=== PATIENT | female | born 1975 | race Caucasian/White ===

== ENCOUNTER 2016-09-21 08:17 | Emergency (ER) | payer SELFPAY ==
[~2016-09-21] VITALS: Ht 160 cm; Wt 68.0 kg
[2016-09-21 08:20] VITALS: Ht 160 cm; Wt 68.0 kg
[2016-09-21] MEDS ORDERED: IPRATROPIUM (NEB) 0.5 MG/2.5 ML AMP NEB STA (08:55)
[2016-09-21] MEDS ORDERED: ALBUTEROL 0.5% (NEB) 2.5 MG/0.5 ML AMP NEB STA (08:55)
[2016-09-21] MEDS ORDERED: DEXAMETHASONE 10 MG/ML 1 ML INJ IM STA (08:55)
[2016-09-21] MEDS ORDERED: ALBU18HF INHALATION (10:51)
[2016-09-21] MEDS ORDERED: IBUP-1542 PO (10:51)
[2016-09-21] MEDS ORDERED: PHEN118L PO (10:51)
--- NOTE | 2016-09-21 10:54 | RADRPT ---
PROCEDURE: XR Chest. CLINICAL INDICATION: Asthma exacerbation TECHNIQUE: A single portable view of the chest was obtained. COMPARISON: None FINDINGS: The cardiomediastinal silhouette is within normal limits. The lungs and pleural spaces are clear. The soft tissues and osseous structures are unremarkable. IMPRESSION: No acute cardiopulmonary disease. RPTAT: [facility] Physician Ana María Date Time Electronically viewed and signed by Nakul Mullins Physician on 09/21/2016 10:54 /
--- NOTE | 2016-09-21 11:30 | ERD ---
ER Documentation Chief Complaint Date/Time DATE: 09/21/16 TIME: 11:27 Chief Complaint pt bib family with c/o cough and feeling bad x 2 days HPI This is a 40-year-old female presenting to the emergency department complaining of cough, fever, nasal congestion for the past 2 days. Patient states that she has difficulty taking a deep breath in. She denies any chest pain. She denies any current fevers. She denies taking any medications for this. Denies any abdominal pain. Denies any history of asthma ROS All systems reviewed and are negative except as per history of present illness. Medications Home Meds Active Scripts Phenylephrine/Diphenhydramine (DIMETAPP COLD & CONGEST LIQUID) 118 Ml Liquid, 5 ML PO Q4H Y for COUGH, #4 OZ Prov:VIDAL HANNA PA-C 09/21/16 Ibuprofen* (Ibuprofen*) 600 Mg Tablet, 600 MG PO Q6H Y for PAIN, #30 TAB Prov:VIDAL HANNA PA-C 09/21/16 Albuterol Sulfate* (Ventolin HFA*) 18 Gm Hfa.aer.ad, 2 PUFF INHALATION Q4H, #1 INHALER Prov:VIDAL HANNA PA-C 09/21/16 Allergies Allergies: Coded Allergies: No Known Allergy (Unverified , 09/21/16) PMhx/Soc Hx Respiratory Disorders: Yes (ASTHMA) Hx Alcohol Use: No Hx Substance Use: No Hx Tobacco Use: No Physical Exam Vitals Vital Signs Date Time Temp Pulse Resp B/P Pulse Ox O2 Delivery O2 Flow Rate FiO2 09/21/16 09:17 95 20 98 21 09/21/16 08:20 98.3 98 18 118/62 98 Physical Exam GENERAL: WD/WN, in no apparent distress, non-toxic appearing HENT: NC/AT, bilateral TM has good cone of light EYES: Conjunctiva normal NECK: Supple PULM: Inspiratory and expiratory wheezing. No rales, crackles, or rhonchi heard. No tripod position, normal labored breathing, no stridor, no evidence of using accessory muscles. CV: Good capillary refill, good S1 and S2, no murmurs appreciated GI: Non-distended, no guarding BACK: No masses. EXT: No clubbing, cyanosis, or edema. NEURO: Moves on all fours SKIN: intact, no cyanosis. PSYCH: Normal mood Results 24 hrs Current Medications Medications (Trade) Dose Ordered Sig/Mague Route PRN Reason Start Time Stop Time Status Last Admin Dose Admin Albuterol (Proventil 0.5% (Neb)) 5 mg ONCE STAT NEB 09/21/16 08:55 09/21/16 08:56 DC 09/21/16 09:16 Ipratropium [place] (Atrovent 0.02% (Neb)) 1.5 mg ONCE STAT NEB 09/21/16 08:55 09/21/16 08:56 DC 09/21/16 09:16 Dexamethasone (Decadron) 10 mg ONCE STAT IM 09/21/16 08:55 09/21/16 08:56 DC 09/21/16 09:15 Procedures/MDM This is a 40-year-old female presenting to the emergency room with symptoms that are most consistent with viral upper respiratory infection. Patient on examination had wheezing therefore is most likely due to reactive airway. I will low suspicion for pneumonia, pleural effusion, pneumothorax, respiratory distress due to physical examination and diagnostic testing. In the ER chest x- ray was done and did not show any evidence of infiltrates, pneumothorax, effusion. RT was consulted since patient had wheezing on examination, she was given albuterol and Atrovent, I have reassessed patient and she had full improvement. Patient stable for discharge to follow-up with primary care physician. Prescription for Ventolin, Tessalon Perles, ibuprofen was provided. She is hematuria stable and neurovascular intact for discharge. She understands and agrees with Departure Diagnosis: Primary Impression: URI (upper respiratory infection) URI type: unspecified viral URI Qualified Code: J06.9 - Viral upper respiratory tract infection Condition: Stable Patient Instructions: Preventing Common Respiratory Infections, Uri, Viral W/ Wheezing (Adult) Referrals: Keyes Doctora Additional Instructions: Visite a ekyes abner duff para un EXAMEN.Regrese a estas instalaciones si no se mejora mee esperbamos o mee le dijimos. [place] toda la medicina bobbi y mee se le indic. Regrese a estas instalaciones si no se mejora mee esperbamos o mee le dijimos. VIDAL HANNA PA-C Sep 21, 2016 11:30
== END 2016-09-21 11:05 | disposition home or self-care (01) ==
LOC: FTE 08:17
DX: J06.9 Acute upper respiratory infection, unspecified (principal); J45.909 Unspecified asthma, uncomplicated
CPT/HCPCS: 71010; 94664; J1100; 96372